=== PATIENT | female | born 2000 ===

== ENCOUNTER 2023-12-06 19:46 | Emergency (ER) | payer OTHER, SELFPAY ==
[2023-12-06 19:50] VITALS: BP 121/86; PULSE 85; RESP 18; TEMP 36.6; O2SAT 97; BMI 20.2
--- NOTE | 2023-12-06 20:31 | ED_ITS ---
HPI - Wound/Laceration General Chief Complaint: Laceration/Wound Stated Complaint: cut on chin Time Seen by Provider: 12/06/23 20:12 History of Present Illness HPI narrative: This 23-year-old female comes in with a chin laceration that occurred just prior to arrival. She was playing on a gym floor and fell and hit her chin. She did not have loss of consciousness. She does have a 1 cm linear laceration along the angle of her chin. Her tetanus status is up-to-date. Related Data Home Medications Medication Instructions Recorded Confirmed norgestimate 0.25 mg-ethinyl tab PO 12/06/23 estradiol 35 mcg tablet (Sprintec (28)) Allergies Allergy/AdvReac Type Severity Reaction Status Date / Time No Known Drug Allergies Allergy Verified 12/06/23 19:53 Review of Systems Status of ROS: Reports: 10 or more systems reviewed and unremarkable except as noted in History and below Narrative: Constitutional: No fevers, no weight gain or loss. Eyes: No discharge. No vision changes. HENT: No congestion, no sore throat, no ear pain. Cardiovascular: No chest pain, no palpitations. Respiratory: No shortness of breath, no wheezes, no cough. Gastrointestinal: No abdominal pain, no vomiting, no diarrhea. Genitourinary: No dysuria, no hematuria. Musculoskeletal: Normal range of motion. Skin: No rashes, no pruritis. Neurological: No dizziness, weakness, sensory change, speech change. Endo/Heme/Allergies: No bruising or bleeding. No polydipsia. Pysch: no suicidality, no anxiety, no insomnia. All other systems reviewed and are negative. Exam Narrative: Exam Narrative: Constitutional: Well-developed, well-nourished, no acute distress. HEENT: Normocephalic, atraumatic. 1 cm linear laceration along the angle of the mandible at the chin. Neck: Normal range of motion. Nontender. Supple. Heart: Intact distal pulses. Lungs: No chest discomfort. No wheezes, rhonchi, or rales. Abdomen: Nontender. Back: Normal range of motion. Extremities: Normal range of motion. No injury. Skin: Intact. No rash. Warm. No erythema or pallor. Neurologic: No altered sensation. No weakness. Alert and oriented. Psychiatric: No suicidality. No anxiety or depression. No insomnia. Nursing notes and vitals signs are reviewed. Const: Vital Signs, click to edit/add: Vital Signs - 24 hr 12/06/23 19:50 Temperature 97.9 F Pulse Rate [Pulse Oximeter] 85 Respiratory Rate 18 Blood Pressure [Ri ght Upper Arm] 121/86 Pulse Oximetry 97 Oxygen Delivery Me thod Room Air Course Vital Signs Vital signs: Initial Vital Signs Temperature 97.9 F 12/06/23 19:50 Temperature Source Temporal Artery Scan 12/06/23 19:50 Pulse Rate 85 12/06/23 19:50 Respiratory Rate 18 12/06/23 19:50 Blood Pressure 121/86 12/06/23 19:50 Blood Pressure Mean 97 12/06/23 19:50 Blood Pressure Position Sitting 12/06/23 19:50 Pulse Oximetry 97 12/06/23 19:50 Oxygen Delivery Method Room Air 12/06/23 19:50 Vital Signs Temperature 97.9 F 12/06/23 19:50 Pulse Rate 85 12/06/23 19:50 Respiratory Rate 18 12/06/23 19:50 Blood Pressure 121/86 12/06/23 19:50 Pulse Oximetry 97 12/06/23 19:50 Oxygen Delivery Method Room Air 12/06/23 19:50 Temperature 97.9 F 12/06/23 19:50 Pulse Rate 85 12/06/23 19:50 Respiratory Rate 18 12/06/23 19:50 Blood Pressure 121/86 12/06/23 19:50 Pulse Oximetry 97 12/06/23 19:50 Oxygen Delivery Method Room Air 12/06/23 19:50 MDM - Wound/Laceration MDM Narrative Medical decision making narrative: This patient has a laceration on her chin that would benefit from repair. After anesthesia with 1% lidocaine with epinephrine, the wound was cleansed. I placed 2 sutures in interrupted fashion using 5.0 Ethilon suture. The skin edges are nicely approximated. Instructions regarding wound care were given and the need to return for suture removal in 5-7 days. Discharge Plan Discharge Clinical Impression: Laceration Patient Disposition: Home, Self-Care Condition: Improved Additional Instructions: Keep wound clean and dry. Follow-up for suture removal in 5-7 days. Return if worsening. Prescriptions: No Action norgestimate-ethinyl estradiol [Sprintec (28)] 0.25-35 mg-mcg tablet PO Stand Alone Forms: [employer] Info Instructions
== END 2023-12-06 20:55 | disposition home or self-care (01) ==
LOC: ED 20:36
PROVIDERS: Emergency Provider Emergency Medicine Emergency Medical Services
DX: S01.81XA Laceration without foreign body of other part of head, initial encounter (principal); W18.30XA Fall on same level, unspecified, initial encounter; Y93.9 Activity, unspecified
CPT/HCPCS: 12011; 99283; 99284